=== PATIENT | female | born 1995 | race Caucasian/White ===

== ENCOUNTER 2017-05-04 18:06 | Emergency (ER) | payer OTHER ==
[~2017-05-04] VITALS: Ht 182.9 cm; Wt 91.6 kg
[2017-05-04 18:29] VITALS: BP 135/68
[2017-05-04] MEDS ORDERED: NACL 0.9% 1,000 ML IV ONE (20:03)
[2017-05-04] MEDS ORDERED: KETOROLAC 30 MG/ML VIAL IVP ONE (20:05)
[2017-05-04] MEDS ORDERED: diphenhydrAMINE 50 MG/ML VIAL IVP ONE (20:05)
[2017-05-04] MEDS ORDERED: METOCLOPRAMIDE 10 MG/2 ML INJ VIAL IVP ONE (20:05)
[2017-05-04 20:41] LABS: APPEARANCE,URINE HAZY (CLEAR); BILIRUBIN,URINE NEGATIVE (NEGATIVE); BLOOD, URINE 3+ (NEGATIVE); COLOR,URINE YELLOW (YELLOW); LEUKOCYTE ESTERASE ,URINE 1+ (NEGATIVE); NITRITE, URINE NEGATIVE (NEGATIVE); PH,URINE 6.5 (5.0-9.0); PROTEIN,URINE TRACE (NEGATIVE); UGLUCOSE NEGATIVE (NEGATIVE); UROBILINOGEN,URINE 0.2 EU/dL (0.2 - 1)
[2017-05-04 20:43] LABS: WBC,URINE 40-60 /HPF (0-5)
[2017-05-04 20:44] LABS: BACTERIA,URINE 2+ /HPF (None Seen); MUCUS,URINE 3+ /LPF (None Seen)
[2017-05-04 21:21] VITALS: BP 110/63
== END 2017-05-04 21:21 | disposition home or self-care (01) ==
LOC: MED 18:06
DX: R51 Headache (principal); N39.0 Urinary tract infection, site not specified
CPT/HCPCS: 81001; 81025; 87086; 96361; 96374; 96375; 99284; J1200; J1885; J2765; J7030

== ENCOUNTER 2023-06-15 10:15 | Emergency (ER) | payer OTHER ==
[~2023-06-15] VITALS: Ht 182.9 cm; Wt 128.4 kg
[2023-06-15 10:23] VITALS: BP 128/70; PULSE 82; RESP 18; TEMP 98.3; O2SAT 99
[2023-06-15 10:53] LABS: BASOPHILS % (AUTO) 0.4 % (0.0-2.0); EOSINOPHILS # (AUTO) 0.1 K/uL (0-0.4); HEMATOCRIT 29.8 % (36-48); HEMOGLOBIN 9.7 g/dL (12.0-16.0); LYMPHOCYTES # (AUTO) 2.2 K/uL (2.5-16.5); LYMPHOCYTES % (AUTO) 23.2 % (20.5-51.1); MEAN CORPUSCULAR HEMOGLOBIN 24 pg (27-31); MEAN CORPUSCULAR HGB CONC 33 g/dL (33-37); MEAN CORPUSCULAR VOLUME 74.4 fL (80-94); MONOCYTES # (AUTO) 0.6 K/uL (0.8-1.0); NEUTROPHILS # (AUTO) 6.6 K/uL (1.8-7.7); NEUTROPHILS % (AUTO) 69.4 % (42.2-75.2); PLATELET COUNT (AUTO) 369 K/uL (140-450); WHITE BLOOD COUNT (AUTO) 9.5 K/uL (4.8-10.8)
[2023-06-15 11:04] VITALS: TEMP 98.3
[2023-06-15] MEDS ORDERED: MEDR10TA PO (12:47)
[2023-06-15 13:03] VITALS: BP 136/78; PULSE 76; RESP 14; O2SAT 100
== END 2023-06-15 13:03 | disposition home or self-care (01) ==
LOC: MED 10:15
DX: N93.8 Other specified abnormal uterine and vaginal bleeding (principal); D50.9 Iron deficiency anemia, unspecified; Z79.899 Other long term (current) drug therapy
CPT/HCPCS: 36415; 76856; 81025; 84443; 85025; 99284; Q0092

== ENCOUNTER 2024-02-26 17:25 | Emergency (ER) | payer OTHER ==
[~2024-02-26] VITALS: Ht 182.9 cm; Wt 126.6 kg
[~2024-02-26 17:25] MED LIST: MEDR10TA PO
[2024-02-26 17:44] VITALS: BP 129/81; PULSE 90; RESP 20; TEMP 97.6; O2SAT 90
[2024-02-26 18:36] LABS: BASOPHILS # (AUTO) 0.1 K/uL (0.00-0.22); BASOPHILS % (AUTO) 0.6 % (0.0-2.0); EOSINOPHILS # (AUTO) 0.1 K/uL (0-0.4); EOSINOPHILS % (AUTO) 1.1 % (0.0-4.0); HEMATOCRIT 33.1 % (36-48); HEMOGLOBIN 10.7 g/dL (12.0-16.0); LYMPHOCYTES # (AUTO) 2.6 K/uL (2.5-16.5); LYMPHOCYTES % (AUTO) 25.6 % (20.5-51.1); MEAN CORPUSCULAR HEMOGLOBIN 23 pg (27-31); MEAN CORPUSCULAR HGB CONC 32 g/dL (33-37); MEAN CORPUSCULAR VOLUME 71.3 fL (80-94); MONOCYTES # (AUTO) 0.7 K/uL (0.8-1.0); MONOCYTES % (AUTO) 6.6 % (1.7-9.3); NEUTROPHILS # (AUTO) 6.8 K/uL (1.8-7.7); NEUTROPHILS % (AUTO) 66.1 % (42.2-75.2); PLATELET COUNT (AUTO) 408 K/uL (140-450); RED BLOOD CELL COUNT(AUTO) 4.64 MIL/uL (4.20-5.40); RED CELL DISTRIBUTION WIDTH 17.5 % (11.6-13.7); WHITE BLOOD COUNT (AUTO) 10.2 K/uL (4.8-10.8)
[2024-02-26 18:44] LABS: BILIRUBIN,URINE NEGATIVE (NEGATIVE); BLOOD, URINE 3+ (NEGATIVE); COLOR,URINE YELLOW (YELLOW); LEUKOCYTE ESTERASE ,URINE NEGATIVE (NEGATIVE); NITRITE, URINE NEGATIVE (NEGATIVE); PROTEIN,URINE NEGATIVE (NEGATIVE); UGLUCOSE NEGATIVE (NEGATIVE); UROBILINOGEN,URINE 0.2 EU/dL (0.2 - 1)
[2024-02-26 18:46] LABS: APPEARANCE,URINE SLIGHTLY CLOUDY (CLEAR)
[2024-02-26 18:58] LABS: RBC,URINE 11-20 (MOD) /HPF (0-5); WBC,URINE 0-5 /HPF (0-5)
[2024-02-26 18:59] LABS: BACTERIA,URINE 10-30 (MOD) /HPF (None Seen); SQUAMOUS EPITHELIAL CELL,UR 4-10 (MOD) /LPF (0-3 (FEW))
[2024-02-26] MEDS ORDERED: MEDR10TA PO (19:22)
== END 2024-02-26 19:35 | disposition home or self-care (01) ==
LOC: MED 17:25
DX: N92.0 Excessive and frequent menstruation with regular cycle (principal); D64.9 Anemia, unspecified; Z79.899 Other long term (current) drug therapy
CPT/HCPCS: 36415; 81001; 81025; 85025; 87086; 99283

== ENCOUNTER 2024-03-13 17:20 | Emergency (ER) | payer OTHER ==
[~2024-03-13] VITALS: Ht 182.9 cm; Wt 126.7 kg
[2024-03-13 17:24] VITALS: BP 138/89; PULSE 96; RESP 18; TEMP 97.8; O2SAT 99
[2024-03-13 19:11] LABS: BASOPHILS % (AUTO) 0.5 % (0.0-2.0); EOSINOPHILS # (AUTO) 0.1 K/uL (0-0.4); EOSINOPHILS % (AUTO) 1.5 % (0.0-4.0); HEMOGLOBIN 9.6 g/dL (12.0-16.0); LYMPHOCYTES # (AUTO) 2.3 K/uL (2.5-16.5); LYMPHOCYTES % (AUTO) 24.8 % (20.5-51.1); MEAN CORPUSCULAR HEMOGLOBIN 23 pg (27-31); MEAN CORPUSCULAR HGB CONC 32 g/dL (33-37); MEAN CORPUSCULAR VOLUME 70.9 fL (80-94); MONOCYTES # (AUTO) 0.6 K/uL (0.8-1.0); NEUTROPHILS # (AUTO) 6.3 K/uL (1.8-7.7); NEUTROPHILS % (AUTO) 67.2 % (42.2-75.2); PLATELET COUNT (AUTO) 413 K/uL (140-450); RED BLOOD CELL COUNT(AUTO) 4.23 MIL/uL (4.20-5.40); RED CELL DISTRIBUTION WIDTH 18.6 % (11.6-13.7); WHITE BLOOD COUNT (AUTO) 9.3 K/uL (4.8-10.8)
[2024-03-13] MEDS ORDERED: MEDR10TA PO (19:46)
[2024-03-13] MEDS ORDERED: FERR325E14 PO (19:46)
[2024-03-13] MEDS ORDERED: IBUP-2213 PO (19:46)
[2024-03-13 19:51] VITALS: BP 138/89; PULSE 96; RESP 18; TEMP 97.8
[2024-03-13 19:52] VITALS: O2SAT 99
[2024-03-13] MEDS: KETOROLAC 30 MG/ML VIAL IM ONE (19:56)
== END 2024-03-13 19:58 | disposition home or self-care (01) ==
LOC: MED 17:20
DX: N92.0 Excessive and frequent menstruation with regular cycle (principal); D50.9 Iron deficiency anemia, unspecified; Z79.899 Other long term (current) drug therapy
CPT/HCPCS: 36415; 84703; 85025; 96372; 99283; J1885